=== PATIENT | female | born 1955 | race Caucasian/White ===

== ENCOUNTER 2025-04-10 17:09 | Inpatient (IN) | payer MEDICARE, OTHER, SELFPAY ==
[2025-04-10] VITALS (7 sets, daily range): BP systolic 155–195; BP diastolic 71–132; PULSE 60–81; RESP 14–20; TEMP 36.6; O2SAT 96–100; BMI 25.0
--- NOTE | ~2025-04-10 | XR_ITS ---
CLINICAL HISTORY: chest pain 1 view chest x-ray Comparison: None provided Findings: Heart size within normal limits. Tortuosity of thoracic aorta. No consolidation, significant pleural effusion or pneumothorax. Small density overlying the right 9th rib posteriorly is nonspecific. No acute fracture. IMPRESSION: 1. No acute findings. 2. Nonspecific small density overlying right 9th rib posteriorly. This document has been electronically signed by: Antonieta Yu MD on 04/10/2025 19:00:42
--- NOTE | ~2025-04-10 | CT_ITS ---
CLINICAL HISTORY: Epigastric Pain, ?R posterior rib CT chest with contrast Comparison: None provided Findings: The heart is normal size. No pericardial effusion. No aneurysm of thoracic aorta. Lungs are clear. No pleural effusion or pneumothorax. No adenopathy. Thyroid is small but otherwise within normal limits. Small hiatal hernia. Findings in upper abdomen described on separate CT abdomen and pelvis. Mild degenerative changes in the thoracic spine. No acute fracture. Spinal stimulator with the electrode tip in spinal canal at the level of T7-8. IMPRESSION: 1. No acute findings in the chest. This document has been electronically signed by: Antonieta Yu MD on 04/10/2025 21:11:52
--- NOTE | ~2025-04-10 | US_ITS ---
EXAMINATION: US ABDOMEN LIMITED HISTORY: RUQ, pancreatitis, r/o gallstones TECHNIQUE: Real-time grayscale ultrasound imaging of the liver and gallbladder was performed and images were reviewed. COMPARISON: Correlation is made with a CT of the abdomen with contrast dated 04/10/2025. FINDINGS: Liver: The right lobe of the liver measures 15.7 cm in size. The left lobe of the liver measures 9.6 cm in size. The liver demonstrates normal homogeneous echotexture. No focal mass or intrahepatic biliary ductal dilatation is identified. There is normal hepatopedal flow in the portal vein. Gallbladder and biliary tree: The gallbladder is unremarkable, without evidence of calculi, wall thickening, or pericholecystic fluid. There is no sonographic Acevedo sign. The common bile duct is normal in caliber measuring 4 mm. Pancreas: The pancreas is obscured by bowel gas. There is no free fluid in the right upper quadrant. US/US abdomen limited IMPRESSION: No evidence of cholelithiasis. Electronically signed by: Shubham Tipton MD 04/12/2025 07:02 AM [facility]
--- NOTE | ~2025-04-10 | CT_ITS ---
CLINICAL HISTORY: Eigastric Pain CT abdomen and pelvis with contrast Comparison: None provided Findings: No consolidation or effusion. The gallbladder is unremarkable. Mild intrahepatic biliary ductal prominence. Common bile duct is not prominent. Otherwise liver is unremarkable. The spleen is unremarkable. Significant peripancreatic inflammatory stranding in peripancreatic fluid extending in the retroperitoneum, suggestive of acute pancreatitis. Adrenal glands are normal. Enhancement of bilateral kidneys with no ureteral stones and no hydronephrosis or hydroureter. Very small bilateral renal hypodense lesions which are too small to be fully characterized but may represent cysts. No perinephric stranding or perinephric fluid. Small hiatal hernia. No bowel obstruction, pneumoperitoneum, or pneumatosis. Wall thickening and enhancement in the region of the pylorus and of the duodenm likely reactive. Duodenitis not excluded. Fluid-filled multiple small bowel loops especially in lower abdomen and pelvis suggestive of small-bowel ileus. No free fluid. No loculated fluid collection. Appendix not visualized. Uterus is absent. Urinary bladder only mildly filled and appears within normal limits. Atherosclerotic vascular disease with no aneurysm of the abdominal aorta. No acute fracture. Degenerative changes lumbar spine. Implanted spinal stimulator in left gluteal soft tissues with electrode extending into the thoracic spinal canal. IMPRESSION: 1. Findings consistent with acute pancreatitis. 2. Pyloric and duodenal wall thickening and enhancement likely reactive. Duodenitis not excluded. 3. Slight intrahepatic biliary ductal dilatation. Common bile duct is not dilated. 4. Mild small bowel ileus. 5. Additional nonacute findings as described. This document has been electronically signed by: Antonieta Yu MD on 04/10/2025 20:58:06
--- NOTE | 2025-04-10 17:16 | ECG_ITS ---
Test Reason : CP Blood Pressure : */* mmHG Vent. Rate : 58 BPM Atrial Rate : 58 BPM P-R Int : 212 ms QRS Dur : 80 ms QT Int : 440 ms P-R-T Axes : -23 48 60 degrees QTcB Int : 431 ms Sinus bradycardia with 1st degree A-V block Nonspecific T wave abnormality Abnormal ECG No previous ECGs available Referred By: Glenna Barlow Electronically Signed By: LEANN MARIE MD
--- NOTE | 2025-04-10 17:57 | ED_ITS ---
HPI - Chest Pain General Chief Complaint: Chest Pain Stated Complaint: CP started 1hr. ago feels better after nitro Time Seen by Provider: 04/10/25 17:57 History of Present Illness ED Provider: Jazmín Montiel NP HPI narrative: 69-year-old female medical history that is significant for hypertension, hyperlipidemia, mood disorder, chronic pain on oxycodone due to back pain, status post spinal cord stimulator and 3 laminectomies, 20 years ago at L3-L4, most recently 2 years ago, L3-L4 again, and over the summer L2-L3 presents to the ED with chief complaint of nonradiating substernal chest pain that began an hour prior to arrival. Patient activated EMS, who gave her 324 mg oral ASA and 1 sublingual nitro with not much relief of her symptoms. She reports that now the pain is below the left breast, in the epigastrium region, with extensive nausea and vomiting. Reports the pain becomes so severe it takes her breath away. She does describe it as a stabbing pain. There is no substernal pressure, no palpitations. No recent illness, fever, chills. Denies alcohol, drug use. No urinary complaints. Reports diarrhea yesterday, no constipation. Related Data Allergies Allergy/AdvReac Type Severity Reaction Status Date / Time nitrofurantoin (From Allergy Unknown Verified 04/10/25 17:30 Macrodantin) Review of Systems 2 Review of Systems: ROS is otherwise negative unless mentioned in HPI. [facility] Social History Social History Alcohol intake: current Alcohol intake frequency: holidays/special occasions only Alcohol type: beer Smoked in Last 30 Days: No Use of substances other than those prescribed or required for medical reasons: Yes Substance Use Type: Marijuana Substance Use Frequency: Daily Advance Directives: No Advance Directives Information Provided: Yes Do you have a plan to hurt others: No Plan Physical Exam 2 Exam: Exam: Nursing notes and vital signs reviewed. Constitutional: Well-appearing, NAD. Alert. Oriented X3. Eyes: EOMI. ENT: Pharynx normal. Neck: Normal inspection. Neck supple. CVS: Normal heart rate and rhythm. Pulses normal. Respiratory: No respiratory distress. Breath sounds normal. Abdomen: Soft, nondistended, subjective diffuse tenderness throughout. Skin: Skin warm and dry. Normal skin color. Extremities: No lower extremity edema. Neuro: Oriented X 3. No motor deficit. Vital Signs: Vital Signs: Last Vital Signs Temp 97.9 F 04/10/25 17:31 Pulse 78 04/10/25 20:41 Resp 20 04/10/25 22:53 BP 168/71 H 04/10/25 20:41 Pulse Ox 97 04/10/25 20:41 O2 Del Method Room Air 04/10/25 20:41 BMI result Body Mass Index 25.0 Medications Administered Discontinued Medications Generic Name Dose Route Start Last Admin Trade Name Yoandy PRN Reason Stop Dose Admin Hydromorphone HCl 1 mg 04/10/25 19:24 04/10/25 20:07 Hydromorphone Hcl 1 Mg/Ml Syringe IVPUSH 04/10/25 19:25 1 mg ONCE ONE Administration Protocol Hydromorphone HCl 1 mg 04/10/25 22:25 04/10/25 22:53 Hydromorphone Hcl 1 Mg/Ml Syringe IVPUSH 04/10/25 22:26 1 mg ONCE ONE Administration Protocol Sodium Chloride 1,000 mls @ 999 mls/hr 04/10/25 18:16 04/10/25 19:23 Ns IV 04/10/25 19:16 Infused .Q1H1M ONE Infusion Iohexol 85 ml 04/10/25 19:48 04/10/25 19:49 Iohexol 350 Mg/Ml 100 Ml Infus..Btl IV 04/10/25 19:49 85 ml ONCE ONE Administration Morphine Sulfate 4 mg 04/10/25 18:16 04/10/25 18:22 Morphine Sulfate 4 Mg/Ml Cartridge IVPUSH 04/10/25 18:17 4 mg ONCE ONE Administration Protocol Ondansetron HCl 4 mg 04/10/25 18:16 04/10/25 18:23 Ondansetron Hcl 4 Mg/2 Ml Vial IVPUSH 04/10/25 18:17 4 mg ONCE ONE Administration Potassium Chloride 40 meq 04/10/25 18:50 04/10/25 20:28 Potassium Chloride Er 20 Meq Tab.Er.Prt PO 04/10/25 18:51 40 meq ONCE ONE Administration Prochlorperazine Edisylate 10 mg 04/10/25 19:15 04/10/25 20:07 Prochlorperazine Edisylate 10 Mg/2 Ml Vial IVPUSH 04/10/25 19:16 10 mg ONCE ONE Administration Medical Decision Making Medical Decision Making [facility] Narrative: Upon my initial assessment of this patient, she is resting comfortably but is endorsing epigastric abdominal pain and left upper quadrant abdominal pain. She endorses active nausea, and experienced 1 episode of non bloody vomiting. She was given nitro by EMS with no relief. I have low clinical suspicion this is cardiac chest pain, her EKG is nonischemic, sinus rhythm with a rate of 67, borderline prolonged OH but no definitive AV block. We will plan to obtain cardiac enzymes, LFTs and lipase, as well as viral panel, and likely CT imaging when labs have returned. We will administer pain control, antiemetic and fluid bolus and reassess. She is a low risk heart score. 6:45 PM: Potassium level was mildly low at 3.1, we will replete orally. Her lipase level is 482, 3 times the normal limit, concerning for underlying pancreatitis. Flat troponin. We will repeat troponin, as well as obtain CT imaging of the abdomen, pelvis. 10:20 PM: CT imaging of the abdomen, pelvis reveals evidence of pancreatitis. Patient did not want to be admitted to the hospital, I p.o. trialed the patient however she endorsed severe pain afterwards. We will need admission for NPO, pain control, antiemetics. 11:05 PM: The hospitalist did request and I add on triglyceride level prior to admission. Triglyceride level here is flat. Second troponin is also flat. We will proceed with admission plan. Differential Diagnosis Differential Diagnoses: The differential diagnosis associated with the presentation includes ACS, mi, pancreatitis, cholecystitis Admission/Observation Consideration of admission/observation: Escalation of care including admission/observation considered Lab Data [facility] Lab Attestation statement: I reviewed the patient's lab results. 04/10/25 17:49 04/10/25 17:49 Labs: Lab Results 04/10/25 04/10/25 04/10/25 Range/Units 17:49 17:50 17:59 WBC 10.5 (4.8-10.8) X10*3/uL RBC 4.69 (4.20-5.50) X10*6/uL Hgb 13.2 (12.0-16.0) g/dl Hct 39.5 (37.0-47.0) % MCV 84.2 (80.0-98.0) fL MCH 28.1 (27.0-33.0) pg MCHC 33.4 (31.0-35.0) g/dl RDW 15.5 (11.0-16.0) % Plt Count 310 (160-400) X10*3/uL MPV 9.9 (9.4-12.3) fL Immature Gran % (Auto) 0.5 H (0.0-0.4) % Neut % (Auto) 64.1 (45-73) % Lymph % (Auto) 28.3 (20-40) % [place] % (Auto) 5.7 (2-11) % Eos % (Auto) 1.0 (0-4) % Baso % (Auto) 0.4 (0-2) % Lymph # (Auto) 3.0 (1.2-4.9) X10*3/uL [place] # (Auto) 0.6 (0.1-1.2) X10*3/uL Eos # (Auto) 0.1 (0.0-0.4) X10*3/uL Baso # (Auto) 0.0 (0.0-0.2) X10*3/uL Abs Immat Gran (auto) 0.05 H (0.00-0.03) X10*3/uL Absolute Neuts (auto) 6.7 (2.0-8.3) x10*3/uL Absolute Nucleated RBC 0.000 (0.0-0.012) X10*3/uL Nucleated RBC % (auto) 0.0 (0.0-0.2) /100WBC VBG pH 7.45 H (7.32-7.43) VBG pCO2 28 mmHg VBG pO2 39 mmHg VBG HCO3 19 L (22-26) mmol/L VBG O2 Saturation 64.0 % VBG Base Excess -2.6 mmol/L Sodium 139 (135-145) mmol/L Potassium 3.1 L (3.3-5.1) mmol/L Chloride 107 (96-108) mmol/L Carbon Dioxide 22 (22-29) mmol/L Anion Gap 13 (12-20) BUN 14 (9-16) mg/dL Creatinine 0.80 (0.5-1.4) mg/dL Estim Creat Clear Calc 60.3 Estimated GFR > 60 Random Glucose 116 H (60-115) mg/dL Calcium 8.7 (8.4-10.2) mg/dL Magnesium 2.2 (1.6-2.6) mg/dL Total Bilirubin 0.3 (0.0-1.0) mg/dL AST 27 (5-31) U/L ALT 14 (0-31) U/L Alkaline Phosphatase 69 (39-117) U/L Troponin I High Sens 7.5 (<3.5-17.0) ng/L NT-Pro-B Natriuret Pep 291.9 (<300) pg/mL Total Protein 5.8 L (6.5-8.0) g/dL Albumin 4.1 (3.5-5.0) g/dL Triglycerides 113 (<150) mg/dL Lipase 482 H (8-78) U/L Urine Color Urine Appearance Urine pH (5.0-9.0) Ur Specific [place] (1.005-1.025) Urine Protein (Neg-Trace) mg/dL Urine Glucose (UA) (Negative) mg/dL Urine Ketones (Negative) mg/dL Urine Blood (Negative) Urine Nitrite (Negative) Ur Leukocyte Esterase (Negative) Influenza Type A (PCR) NEGATIVE (Negative) Influenza Type B (PCR) NEGATIVE (Negative) RSV RNA Qual (PCR) NEGATIVE (Negative) SARS-CoV-2 RNA (RT-PCR) NEGATIVE (Negative) 04/10/25 Range/Units 19:02 WBC (4.8-10.8) X10*3/uL RBC (4.20-5.50) X10*6/uL Hgb (12.0-16.0) g/dl Hct (37.0-47.0) % MCV (80.0-98.0) fL MCH (27.0-33.0) pg MCHC (31.0-35.0) g/dl RDW (11.0-16.0) % Plt Count (160-400) X10*3/uL MPV (9.4-12.3) fL Immature Gran % (Auto) (0.0-0.4) % Neut % (Auto) (45-73) % Lymph % (Auto) (20-40) % [place] % (Auto) (2-11) % Eos % (Auto) (0-4) % Baso % (Auto) (0-2) % Lymph # (Auto) (1.2-4.9) X10*3/uL [place] # (Auto) (0.1-1.2) X10*3/uL Eos # (Auto) (0.0-0.4) X10*3/uL Baso # (Auto) (0.0-0.2) X10*3/uL Abs Immat Gran (auto) (0.00-0.03) X10*3/uL Absolute Neuts (auto) (2.0-8.3) x10*3/uL Absolute Nucleated RBC (0.0-0.012) X10*3/uL Nucleated RBC % (auto) (0.0-0.2) /100WBC VBG pH (7.32-7.43) VBG pCO2 mmHg VBG pO2 mmHg VBG HCO3 (22-26) mmol/L VBG O2 Saturation % VBG Base Excess mmol/L Sodium (135-145) mmol/L Potassium (3.3-5.1) mmol/L Chloride (96-108) mmol/L Carbon Dioxide (22-29) mmol/L Anion Gap (12-20) BUN (9-16) mg/dL Creatinine (0.5-1.4) mg/dL Estim Creat Clear Calc Estimated GFR Random Glucose (60-115) mg/dL Calcium (8.4-10.2) mg/dL Magnesium (1.6-2.6) mg/dL Total Bilirubin (0.0-1.0) mg/dL AST (5-31) U/L ALT (0-31) U/L Alkaline Phosphatase (39-117) U/L Troponin I High Sens 8.4 (<3.5-17.0) ng/L NT-Pro-B Natriuret Pep (<300) pg/mL Total Protein (6.5-8.0) g/dL Albumin (3.5-5.0) g/dL Triglycerides (<150) mg/dL Lipase (8-78) U/L Urine Color Yellow Urine Appearance Cloudy Urine pH 7.0 (5.0-9.0) Ur Specific [place] 1.010 (1.005-1.025) Urine Protein Negative (Neg-Trace) mg/dL Urine Glucose (UA) Negative (Negative) mg/dL Urine Ketones 15 (Negative) mg/dL Urine Blood Negative (Negative) Urine Nitrite Negative (Negative) Ur Leukocyte Esterase Negative (Negative) Influenza Type A (PCR) (Negative) Influenza Type B (PCR) (Negative) RSV RNA Qual (PCR) (Negative) SARS-CoV-2 RNA (RT-PCR) (Negative) Independent Interpretation I performed an independent interpretation of an: EKG Interpretation: Rate: 67 Rhythm: SR [place]: 52/31/53 Normal P waves. Normal LORI. Normal QRS complex. ST T wave : no dep, elev qTC: 471 prior studies: No previous available for comparison. The study has been interpreted contemporaneously by me. Radiology Impression Discussion of test interpretation with radiology: I have reviewed the radiologist's reading. Radiologist Impression: Chest X-Ray IMPRESSION: 1. No acute findings. 2. Nonspecific small density overlying right 9th rib posteriorly. CT Abdomen/Pelvis IMPRESSION: 1. Findings consistent with acute pancreatitis. 2. Pyloric and duodenal wall thickening and enhancement likely reactive. Duodenitis not excluded. 3. Slight intrahepatic biliary ductal dilatation. Common bile duct is not dilated. 4. Mild small bowel ileus. 5. Additional nonacute findings as described. CT Chest IMPRESSION: 1. No acute findings in the chest. Independent Historian Clinical information obtained from an independent historian. History obtained from or confirmed by: EMS External Record Review None available Chronic Conditions Patient?s care impacted by: Hypertension Social Determinants Patient?s care significantly limited by Social Determinants of Health including: Problems related to primary support group Discharge Plan Discharge Clinical Impression: Pancreatitis Qualifiers: Chronicity: acute Pancreatitis type: unspecified pancreatitis type Acute pancreatitis complication: no infection or necrosis Qualified Code(s): K85.90 - Acute pancreatitis without necrosis or infection, unspecified Patient Disposition: Admitted As Inpatient Print Language: Montenegrin
[2025-04-10 17:58] LABS: MANUAL DIFF FLAG NO
[2025-04-10 18:01] LABS: Venous Blood Gas Refer to POC result
[2025-04-10 18:02] LABS: VBG HCO3 19 mmol/L (22-26); VBG O2 % Saturation 64.0 %
--- NOTE | 2025-04-10 18:02 | ECG_ITS ---
Test Reason : CHEST PAIN Blood Pressure : */* mmHG Vent. Rate : 67 BPM Atrial Rate : 67 BPM P-R Int : 228 ms QRS Dur : 86 ms QT Int : 446 ms P-R-T Axes : 52 31 53 degrees QTcB Int : 471 ms Sinus rhythm with 1st degree A-V block Otherwise normal ECG When compared with ECG of 10-Apr-2025 17:42, No significant change was found Referred By: Jazmín Montiel Electronically Signed By: LEANN MARIE MD
[2025-04-10 18:20] LABS: Hematocrit 39.5 % (37.0-47.0); Hemoglobin 13.2 g/dl (12.0-16.0); Imm Gran Abs Auto 0.05 X10*3/uL (0.00-0.03); Imm Gran Pct Auto 0.5 % (0.0-0.4); Lymphocytes Absolute Auto 3.0 X10*3/uL (1.2-4.9); Mean Corpuscular HGB Conc 33.4 g/dl (31.0-35.0); Mean Corpuscular Hemoglobin 28.1 pg (27.0-33.0); Mean Corpuscular Volume 84.2 fL (80.0-98.0); NRBC Abs Auto 0.000 X10*3/uL (0.0-0.012); NRBC Pct Auto 0.0 /100WBC (0.0-0.2); Platelet Count 310 X10*3/uL (160-400); Red Blood Count 4.69 X10*6/uL (4.20-5.50); White Blood Count 10.5 X10*3/uL (4.8-10.8)
[2025-04-10 18:24] LABS: NT Pro B Type Natriuretic Pept 291.9 pg/mL (<300)
[2025-04-10 18:25] LABS: Troponin-I High Sensitivity 7.5 ng/L (<3.5-17.0)
[2025-04-10 18:28] LABS: Alanine Aminotransferase 14 U/L (0-31); Albumin Level 4.1 g/dL (3.5-5.0); Alkaline Phosphatase 69 U/L (39-117); Anion Gap 13 (12-20); Aspartate Amino Transferase 27 U/L (5-31); Blood Urea Nitrogen 14 mg/dL (9-16); Calcium 8.7 mg/dL (8.4-10.2); Carbon Dioxide 22 mmol/L (22-29); Chloride 107 mmol/L (96-108); Creatinine Clr Calc Pharmacy 60.3; Estimated Glomerular Filt Rate > 60; Magnesium 2.2 mg/dL (1.6-2.6); Potassium 3.1 mmol/L (3.3-5.1); Sodium 139 mmol/L (135-145); Total Protein 5.8 g/dL (6.5-8.0)
[2025-04-10 18:35] LABS: Lipase 482 U/L (8-78)
[2025-04-10 18:44] LABS: Resp Syncy Virus RNA Qual PCR NEGATIVE (Negative); SARS COV2 PCR INHOUSE NEGATIVE (Negative)
[2025-04-10 19:09] LABS: Appearance Urine Cloudy; Glucose Urine UA Negative (Negative); PH 7.0 (5.0-9.0); Specific Gravity - Urine 1.010 (1.005-1.025)
[2025-04-10 19:28] LABS: Troponin-I High Sensitivity 8.4 ng/L (<3.5-17.0)
[2025-04-10] MEDS: iohexoL 350 MG/ML 100 ML INFUS..BTL 85 ML IV (19:49)
[2025-04-10] MEDS: Potassium Chloride ER 20 MEQ TAB.ER.PRT 40 MEQ PO (20:28)
[2025-04-10 23:04] LABS: Triglycerides 113 mg/dL (<150)
--- NOTE | 2025-04-10 23:41 | P.HPHOSP_ITS ---
History of Present Illness Date of Service: 04/10/25 Attending physician on admission: Sridhar Reich Chief Complaint: Abdominal pain Thalia Andujar is a 69 years old woman with past medical history significant for GERD on Protonix, chronic pains due to osteoarthritis and back pain issues on oxycodone, tramadol and diclofenac presents to the emergency department complaining of epigastric pain that started today at 15:00. She described the pain as sharp and radiating to the left lower quadrant and back. It is associated with multiple episodes of nonbloody vomiting and 1 episode of watery nonbloody diarrhea. She took 1 Protonix without significant improvement of symptoms. She denied prior events of pancreatitis or PUD. She drinks 1-2 beers nightly. Denied current tobacco smoking or illicit drug use. She has had EGDs and colonoscopy in the past, and basically remarkable for GERD. Abdominal surgery history is remarkable for hysterectomy. In the ED she was found to have stable vital signs. Blood workup showed no leukocytosis. Hemoglobin is 13.2 and platelets 310. There are no significant electrolyte imbalances except for hypokalemia of 3.1. BUN is 14 and creatinine 0.80. LFTs are normal. Troponin is 7.5 then 8.4. Lipase 482. Urinalysis showed no evidence of UTI; there is ketonuria. Viral testing for COVID-19, influenza and RSV is negative. CXR showed no acute findings. Abdomen and pelvis CT scan with IV contrast showed finding consistent with acute pancreatitis, pyloric and duodenal wall thickening and enhancement likely reactive; duodenitis not excluded. There is slight intrahepatic bilateral ductal dilatation there is no CBD dilatation. Mild small bowel ileus. Chest CTA showed no acute finding in the chest. ECG shows sinus bradycardia with first-degree AV block. ED tx: NS 1 L bolus, morphine 4 mg IV, Zofran 4 mg IV, potassium chloride 40 mEq p.o., Compazine 10 mg IV, Dilaudid 2 mg IV total Review of Systems 2 Review of Systems: All 12 systems were reviewed and normal except as noted in HPI. [facility] Medical History (Updated 04/10/25 @ 23:58 by Sridhar Reich MD) Hyperlipidemia Chronic prescription opiate use Social History Alcohol intake: current Alcohol intake frequency: holidays/special occasions only Alcohol type: beer Smoked in Last 30 Days: No Use of substances other than those prescribed or required for medical reasons: Yes Substance Use Type: Marijuana Substance Use Frequency: Daily Advance Directives: No Advance Directives Information Provided: Yes Do you have a plan to hurt others: No Plan Meds Allergies Allergy/AdvReac Type Severity Reaction Status Date / Time nitrofurantoin (From Allergy Unknown Verified 04/10/25 17:30 Macrodantin) Active Medications: Current Medications Acetaminophen (Acetaminophen 325 Mg Tablet) 650 mg PO Q6H PRN PRN Reason: Pain, Mild 1-3,fever,headache Enoxaparin Sodium (Enoxaparin Sodium 40 Mg/0.4 Ml Syringe) 40 mg SUBCUT Q24H [place] Ondansetron HCl (Ondansetron Hcl 4 Mg/2 Ml Vial) 4 mg IVPUSH Q6H PRN PRN Reason: Nausea and Vomiting Pantoprazole Sodium (Pantoprazole Sodium 40 Mg/10 Ml Vial) 40 mg IVPUSH BID@0630,1630 [place] Sodium Chloride (0.9 % Sodium Chloride Flush 3 Ml Syringe) 3 ml IVFLUSH QSHIFT [facility] Physical Exam 2 Vital Signs and Narrative: Vital Signs: Last Vital Signs Temp 97.9 F 04/10/25 17:31 Pulse 78 04/10/25 20:41 Resp 20 04/10/25 22:53 BP 168/71 H 04/10/25 20:41 Pulse Ox 97 04/10/25 20:41 O2 Del Method Room Air 04/10/25 20:41 BMI result Body Mass Index 25.0 General: Alert, oriented, in no acute distress. Well nourished and cooperative. Afebrile. HEENT: Head normocephalic, atraumatic. PER, EOMI. Sclerae anicteric, conjunctiva clear. Oropharynx without erythema or exudate. Mucous membranes dry. Neck: Supple, or JVD. Heart: RRR, no murmurs, rubs or gallops. Lungs: Clear to auscultation bilaterally. No wheezes, rales, or rhonchi. Normal respiratory effort. Abdomen: Soft, nondistended, epigastric tenderness + left lower quadrant tenderness without rebound or guarding, increased bowel sounds. No hepatosplenomegaly, masses or masses. Extremities: No calf tenderness bilaterally, no swelling Musculoskeletal: Full range of motion. No joint swelling, deformity, or tenderness. Normal muscle tone and strength. Skin: Warm/Dry. No pallor. No jaundice. Neurologic: Alert & oriented x4. Moving all extremities spontaneously. Normal speech. Psychological: Normal mood and affect. Thought process coherent. Results Labs 04/10/25 17:49 04/10/25 17:49 Labs: Laboratory Results - last 24 hr 04/10/25 04/10/25 04/10/25 17:49 17:50 17:59 MCV 84.2 MCH 28.1 MCHC 33.4 RDW 15.5 Plt Count 310 MPV 9.9 Immature Gran % (Auto) 0.5 H Neut % (Auto) 64.1 Lymph % (Auto) 28.3 [place] % (Auto) 5.7 Eos % (Auto) 1.0 Baso % (Auto) 0.4 Lymph # (Auto) 3.0 [place] # (Auto) 0.6 Eos # (Auto) 0.1 Baso # (Auto) 0.0 Abs Immat Gran (auto) 0.05 H Absolute Neuts (auto) 6.7 Absolute Nucleated RBC 0.000 Nucleated RBC % (auto) 0.0 VBG pH 7.45 H VBG pCO2 28 VBG pO2 39 VBG HCO3 19 L VBG O2 Saturation 64.0 VBG Base Excess -2.6 Anion Gap 13 Estim Creat Clear Calc 60.3 Estimated GFR > 60 Random Glucose 116 H Calcium 8.7 Magnesium 2.2 Total Bilirubin 0.3 AST 27 ALT 14 Alkaline Phosphatase 69 Troponin I High Sens 7.5 NT-Pro-B Natriuret Pep 291.9 Total Protein 5.8 L Albumin 4.1 Triglycerides 113 Lipase 482 H Urine Color Urine Appearance Urine pH Ur Specific [place] Urine Protein Urine Glucose (UA) Urine Ketones Urine Blood Urine Nitrite Ur Leukocyte Esterase Influenza Type A (PCR) NEGATIVE Influenza Type B (PCR) NEGATIVE RSV RNA Qual (PCR) NEGATIVE SARS-CoV-2 RNA (RT-PCR) NEGATIVE 04/10/25 19:02 MCV MCH MCHC RDW Plt Count MPV Immature Gran % (Auto) Neut % (Auto) Lymph % (Auto) [place] % (Auto) Eos % (Auto) Baso % (Auto) Lymph # (Auto) [place] # (Auto) Eos # (Auto) Baso # (Auto) Abs Immat Gran (auto) Absolute Neuts (auto) Absolute Nucleated RBC Nucleated RBC % (auto) VBG pH VBG pCO2 VBG pO2 VBG HCO3 VBG O2 Saturation VBG Base Excess Anion Gap Estim Creat Clear Calc Estimated GFR Random Glucose Calcium Magnesium Total Bilirubin AST ALT Alkaline Phosphatase Troponin I High Sens 8.4 NT-Pro-B Natriuret Pep Total Protein Albumin Triglycerides Lipase Urine Color Yellow Urine Appearance Cloudy Urine pH 7.0 Ur Specific [place] 1.010 Urine Protein Negative Urine Glucose (UA) Negative Urine Ketones 15 Urine Blood Negative Urine Nitrite Negative Ur Leukocyte Esterase Negative Influenza Type A (PCR) Influenza Type B (PCR) RSV RNA Qual (PCR) SARS-CoV-2 RNA (RT-PCR) Assessment and Plan (1) Pancreatitis: Qualifiers: Acute pancreatitis complication: no infection or necrosis Chronicity: a cute Pancreatitis type: unspecified pancreatitis type Qualified Code(s): K 85.90 - Acute pancreatitis without necrosis or infection, unspecified Status: Acute (2) Hypokalemia: Status: Acute Plan Thalia Andujar is a 69 y/o woman with a PMHx significant for GERD on Protonix and chronic pain (on oral opiate and diclofenac) who presents with: Acute pancreatitis + ? associated duodenitis and gastritis, cause unclear. Hold diclofenac. NPO. IV fluids. Pain control. Protonix 40 mg IV b.i.d.. Continue to monitor lipase and CRP level. Patient was encouraged to avoid alcoholic beverage every night. Check abdominal ultrasound to assess for gallstones. Gastroenterology consult. Hypokalemia, likely secondary to vomiting and poor p.o. intake. Replete as needed. Continue to monitor. Chronic pains/osteoarthritis. s/p spinal stimulator. On chronic opiate use including oxycodone and tramadol. Possible alcohol abuse. Drinks 1-2 beers nightly. CIWA for now. Hyperlipidemia. Continue statin when able. Mood disorder. Continue home meds: Sertraline and Xanax. Code status: Full DVT prophylaxis: Lovenox Patient will need hospitalization for at least 2 midnights for acute pancreatitis and possible duodenitis treatment with IV pain meds, hydration and evaluation by subspecialty. Quality Stroke Does the patient have a stroke diagnosis?: No VTE Prior VTE?: No VTE Risk Level:: Medical - moderate - high VTE Device Contraindication: Treatment Not Indicated VTE Drug Contraindication: N/A - Med Ordered
[2025-04-11] VITALS (8 sets, daily range): BP systolic 105–186; BP diastolic 68–98; PULSE 69–82; RESP 16–19; TEMP 36.4–37.1; O2SAT 95–98
[2025-04-11] MEDS: 0.9 % Sodium Chloride Flush 3 ML SYRINGE IVFLUSH ×3 (00:41→19:22)
[2025-04-11] MEDS: KCl 40 mEq in 0.9 % Sodium Chl 40 MEQ/1,000 ML IV.SOLN 150 MEQ IVCONT (00:55)
[2025-04-11 04:07] LABS: MANUAL DIFF FLAG NO
[2025-04-11 04:08] LABS: Hematocrit 36.2 % (37.0-47.0); Hemoglobin 12.0 g/dl (12.0-16.0); Imm Gran Abs Auto 0.05 X10*3/uL (0.00-0.03); Imm Gran Pct Auto 0.4 % (0.0-0.4); Lymphocytes Absolute Auto 1.9 X10*3/uL (1.2-4.9); Mean Corpuscular HGB Conc 33.1 g/dl (31.0-35.0); Mean Corpuscular Hemoglobin 28.1 pg (27.0-33.0); Mean Corpuscular Volume 84.8 fL (80.0-98.0); NRBC Abs Auto 0.000 X10*3/uL (0.0-0.012); NRBC Pct Auto 0.0 /100WBC (0.0-0.2); Platelet Count 257 X10*3/uL (160-400); Red Blood Count 4.27 X10*6/uL (4.20-5.50); White Blood Count 12.8 X10*3/uL (4.8-10.8)
[2025-04-11 05:06] LABS: Alanine Aminotransferase 13 U/L (0-31); Albumin Level 3.9 g/dL (3.5-5.0); Alkaline Phosphatase 63 U/L (39-117); Anion Gap 11 (12-20); Aspartate Amino Transferase 21 U/L (5-31); Blood Urea Nitrogen 8 mg/dL (9-16); Calcium 7.8 mg/dL (8.4-10.2); Carbon Dioxide 21 mmol/L (22-29); Chloride 111 mmol/L (96-108); Creatinine Clr Calc Pharmacy 75.4; Estimated Glomerular Filt Rate > 60; Magnesium 2.0 mg/dL (1.6-2.6); Potassium 3.6 mmol/L (3.3-5.1); Sodium 139 mmol/L (135-145); Total Protein 5.6 g/dL (6.5-8.0)
[2025-04-11 05:17] LABS: Lipase 1188 U/L (8-78)
--- NOTE | 2025-04-11 07:43 | P.PNIM_ITS ---
Subjective Subjective Date of Service: 04/11/25 Interval History: acute pancreatitis htn Review of Systems has abd pain similar to yesterday. Feels somewhat nauseated Passing gases, last BM yesterday. Review of Systems: Yes all other systems are reviewed and are negative Physical Exam 2 Exam: Exam: Appearance: Alert.? Oriented X3.? cvs: [id number], [id number] . res: clear to auscultation ,no rhonchii or wheezing abd: no rebound or guarding ,left upper flank area pain, bs present. ext pulses present , no cyanosis . neuro: axo3 , nonfocal. Vital Signs: Vital Signs: Last Vital Signs Temp 97.9 F 04/10/25 17:31 Pulse 76 04/11/25 04:38 Resp 17 04/11/25 04:38 BP 186/98 H 04/11/25 04:38 Pulse Ox 98 04/11/25 04:38 O2 Del Method Room Air 04/11/25 04:38 BMI result Body Mass Index 25.0 Objective Data Active Medications Acetaminophen (Acetaminophen 325 Mg Tablet) 650 mg PO Q6H PRN PRN Reason: Pain, Mild 1-3,fever,headache Docusate Sodium (Docusate Sodium 100 Mg Capsule) 100 mg PO BID PRN PRN Reason: Constipation Enoxaparin Sodium (Enoxaparin Sodium 40 Mg/0.4 Ml Syringe) 40 mg SUBCUT Q24H [place] Hydromorphone HCl (Hydromorphone Hcl 1 Mg/Ml Syringe) 1 mg IVPUSH Q3H PRN; Protocol PRN Reason: Pain, Severe (Pain Scale 7-10) Last Admin: 04/11/25 05:36 Dose: 1 mg Documented By: CELSA Ondansetron HCl (Ondansetron Hcl 4 Mg/2 Ml Vial) 4 mg IVPUSH Q6H PRN PRN Reason: Nausea and Vomiting Last Admin: 04/11/25 04:40 Dose: 4 mg Documented By: CELSA Oxycodone HCl (Oxycodone Hcl Immed Release 5 Mg Tablet) 5 mg PO Q4H PRN PRN Reason: Pain, Moderate(Pain Scale 4-6) Pantoprazole Sodium (Pantoprazole Sodium 40 Mg/10 Ml Vial) 40 mg IVPUSH BID@0630,1630 [facility] Last Admin: 04/11/25 00:41 Dose: 40 mg Documented By: CELSA Sodium Chloride (0.9 % Sodium Chloride Flush 3 Ml Syringe) [facility] Last Admin: 04/11/25 00:41 Dose: 3 ml Documented By: CELSA Labs 04/11/25 03:50 04/11/25 03:50 Labs: Laboratory Results - last 24 hr 04/10/25 04/10/25 04/10/25 17:49 17:50 17:59 MCV 84.2 MCH 28.1 MCHC 33.4 RDW 15.5 Plt Count 310 MPV 9.9 Immature Gran % (Auto) 0.5 H Neut % (Auto) 64.1 Lymph % (Auto) 28.3 [place] % (Auto) 5.7 Eos % (Auto) 1.0 Baso % (Auto) 0.4 Lymph # (Auto) 3.0 [place] # (Auto) 0.6 Eos # (Auto) 0.1 Baso # (Auto) 0.0 Abs Immat Gran (auto) 0.05 H Absolute Neuts (auto) 6.7 Absolute Nucleated RBC 0.000 Nucleated RBC % (auto) 0.0 VBG pH 7.45 H VBG pCO2 28 VBG pO2 39 VBG HCO3 19 L VBG O2 Saturation 64.0 VBG Base Excess -2.6 Anion Gap 13 Estim Creat Clear Calc 60.3 Estimated GFR > 60 Random Glucose 116 H Calcium 8.7 Magnesium 2.2 Total Bilirubin 0.3 AST 27 ALT 14 Alkaline Phosphatase 69 Troponin I High Sens 7.5 C-Reactive Protein NT-Pro-B Natriuret Pep 291.9 Total Protein 5.8 L Albumin 4.1 Triglycerides 113 Lipase 482 H Urine Color Urine Appearance Urine pH Ur Specific [place] Urine Protein Urine Glucose (UA) Urine Ketones Urine Blood Urine Nitrite Ur Leukocyte Esterase Influenza Type A (PCR) NEGATIVE Influenza Type B (PCR) NEGATIVE RSV RNA Qual (PCR) NEGATIVE SARS-CoV-2 RNA (RT-PCR) NEGATIVE 04/10/25 04/11/25 19:02 03:50 MCV 84.8 MCH 28.1 MCHC 33.1 RDW 15.3 Plt Count 257 MPV 9.4 Immature Gran % (Auto) 0.4 Neut % (Auto) 77.6 H Lymph % (Auto) 15.2 L [place] % (Auto) 6.3 Eos % (Auto) 0.2 Baso % (Auto) 0.3 Lymph # (Auto) 1.9 [place] # (Auto) 0.8 Eos # (Auto) 0.0 Baso # (Auto) 0.0 Abs Immat Gran (auto) 0.05 H Absolute Neuts (auto) 9.9 H Absolute Nucleated RBC 0.000 Nucleated RBC % (auto) 0.0 VBG pH VBG pCO2 VBG pO2 VBG HCO3 VBG O2 Saturation VBG Base Excess Anion Gap 11 L Estim Creat Clear Calc 75.4 Estimated GFR > 60 Random Glucose 122 H Calcium 7.8 L D Magnesium 2.0 Total Bilirubin 0.3 AST 21 ALT 13 Alkaline Phosphatase 63 Troponin I High Sens 8.4 C-Reactive Protein 0.49 NT-Pro-B Natriuret Pep Total Protein 5.6 L Albumin 3.9 Triglycerides Lipase 1188 H Urine Color Yellow Urine Appearance Cloudy Urine pH 7.0 Ur Specific [place] 1.010 Urine Protein Negative Urine Glucose (UA) Negative Urine Ketones 15 Urine Blood Negative Urine Nitrite Negative Ur Leukocyte Esterase Negative Influenza Type A (PCR) Influenza Type B (PCR) RSV RNA Qual (PCR) SARS-CoV-2 RNA (RT-PCR) Assessment and Plan (1) Pancreatitis: Status: Acute (2) Hypokalemia: Status: Acute Assessment and Plan: 69 y/o woman with a PMHx significant for GERD on Protonix and chronic pain (on oral opiate and diclofenac) who presents with: Acute pancreatitis + ? associated duodenitis and gastritis, cause unclear. ct abd: consistent with acute pancreatitis. Pyloric and duodenal wall thickening and enhancement likely reactive. Duodenitis not excluded. Slight intrahepatic biliary ductal dilatation. Common bile duct is not dilated. Mild small bowel ileus. elevated lipase levels mild leucocytosis reactive to above. abdominal ultrasound to assess for gallstones. Hold diclofenac. NPO. IV fluids. Pain control. Protonix 40 mg IV b.i.d.. Gastroenterology consult. Hypokalemia, likely secondary to vomiting and poor p.o. intake. Replete as needed. Continue to monitor. Chronic pains/osteoarthritis. s/p spinal stimulator. On chronic opiate use including oxycodone and tramadol. Possible alcohol abuse. Drinks 1-2 beers nightly. CIWA for now. Hyperlipidemia. Continue statin when able. Mood disorder. Continue home meds: Sertraline and Xanax. Code status: Full DVT prophylaxis: Lovenox ongoing need for stay: acute pancreatitis and possible duodenitis treatment with IV pain meds, hydration and evaluation by subspecialty. Quality Stroke Does the patient have a stroke diagnosis?: No VTE Prior VTE?: No VTE Risk Level:: Medical - moderate - high VTE Device Contraindication: Treatment Not Indicated VTE Drug Contraindication: N/A - Med Ordered
--- NOTE | 2025-04-11 08:57 | PHA.MEDREC ---
Addendum entered by Lucila Quezada, PharmD 04/11/25 11:07: [facility] reviewed. Patient confirmed she is taking topiramate 100 mg daily. Original Note: Pharmacy Consult ? Medication Reconciliation Pharmacy has completed the medication reconciliation. Spoke with pt and she confirmed her medications. Pt confirmed she is taking Alprazolam 0.25mg tabs 1 @ bedtime now; originally written 0.25mg BID, Estradiol patches twice a week on [facility]; pt last took that Saturday 04/07, Montelukast 10mg 1 QD; LF in [place] 11/12 for 90, LF at [facility] pharmacy in [place] ([phone]) 11/12, Gabapebtin 600mg caps 1 TID; LF at [facility] in [place] ([phone]) 12/05 for 90 and Bupropion 300mg tabs 1QD; LF @ [facility] pharmacy 11/24 for 90 days.
--- NOTE | 2025-04-11 16:37 | MHC.CM.PN ---
CM ATTEMPTED TO MEET WITH PT WHO WAS IN THE REST ROOM CM WILL REVISIT
[2025-04-11] MEDS: buPROPion HCl XL 300 MG TAB.ER.24H PO (18:39)
--- NOTE | 2025-04-11 18:58 | P.EN_ITS ---
Event Note Date of Service: 04/11/25 Event Note: GI Consult-Full note dictated-History form the patient and the EMR. Imp: Acute pancreatitis, ? etiology. She is clinically stable but still having the same pain as yesterday and her lipase is higher than the admission level. Rec: Supportive care, NPO for now, follow up labs, and continue IV fluids. Check GB U/S report re: any possibility of gallstones that might contribute to the pancreatitis. Depending upon her clinical course she may need further w/u IgG holland btypes to R/O an autoimmune pancreatitis, an EUS of the pancreas, and a MRCP/MRI of the pancreas. D/W patient in detail. Thanks Time Spent With Patient Time: Total time managing care of this patient today ____ minutes.
[2025-04-11] MEDS: Lactated Ringers 1,000 ML 100 ML IVCONT (19:32)
[2025-04-12] VITALS (7 sets, daily range): BP systolic 109–160; BP diastolic 64–85; PULSE 74–88; RESP 16–19; TEMP 36.1–36.9; O2SAT 96–99
--- NOTE | 2025-04-12 02:43 | CONS_ITS ---
DATE OF SERVICE: 04/11/2025 REASON FOR CONSULTATION: Pancreatitis and abdominal pain. HISTORY OF PRESENT ILLNESS: The patient is a 69-year-old female who was in her usual state of health up until yesterday afternoon when she developed the fairly sudden onset of upper abdominal pain that became quite severe and associated with nausea and vomiting. She had never had these symptoms before. She denies any known history of pancreatitis in herself or family members. She denies any history of pancreatic cancer in the family. Prior to yesterday, she reports that she was basically feeling well from a GI standpoint. She tends to enjoy a good appetite. Denies any significant heartburn or dysphagia. She reports that her bowel movements have been regular and without any signs of bleeding. Of note, she does take a daily PPI to maintain good control of the reflux. She has undergone previous upper endoscopies and colonoscopies while living in [place] that reportedly were nonrevealing. She advises me that she just moved back here from [place] after having taking care of her mother there prior to her mother dying. The patient reports that she is still having abdominal pain significantly and just about the same as when she came in yesterday. She denies any recent signs of jaundice, dysphagia, unintentional weight loss, or fevers. She does have 1 beer each evening about 5 times a week. She denies any history of significant alcohol use aside from that, and does not smoke. MEDICATIONS: Her medications at home include alprazolam, bupropion, diclofenac, estradiol, gabapentin, lisinopril, montelukast, oxycodone with acetaminophen, pantoprazole, rosuvastatin, sertraline, tizanidine, topiramate, tramadol, . PAST MEDICAL HISTORY: Hypertension, hyperlipidemia, gastroesophageal reflux, back pain. PAST SURGICAL HISTORY: Her surgeries include multiple back operations, insertion of spinal stimulator, hysterectomy but her ovaries remain. She denies history of [place] diabetes or stroke. She describes previous upper endoscopies and colonoscopy while living in [place]. SOCIAL HISTORY: She does not smoke and has about 1 beer per day. She denies any excess drinking. FAMILY HISTORY: Noncontributory. PHYSICAL EXAMINATION: GENERAL: The patient is a pleasant, alert, comfortable-appearing female. VITAL SIGNS: Have been stable. She has been afebrile. SKIN: Warm and dry. Anicteric sclerae. Moist mucous membranes. ABDOMEN: Soft but slightly distended. Bowel sounds are hypoactive. She does have diffuse tenderness, particularly in the upper abdomen. There is no palpable mass. EXTREMITIES: Without edema. LABORATORY DATA: White count 10.5 yesterday and 12.8 today. Hemoglobin 12.0 today at 13.2 yesterday. MCV 85. Normal electrolytes. BUN 8, creatinine 0.6, blood sugar 122, calcium 7.8, lipase 1188. Her lipase was [address] scan of her abdomen and pelvis on admission revealed mild intrahepatic biliary ductal prominence, but normal common bile duct. The gallbladder was unremarkable. Liver and spleen were unremarkable. There was significant peripancreatic inflammatory stranding in the peripancreatic area with associated fluid extending into the retroperitoneum. There was no mass. This was felt to be consistent with acute pancreatitis. There was some pyloric and duodenal wall thickening in relation to the pancreatitis. IMPRESSION: The patient is a 69-year-old female presenting with a new onset of acute pancreatitis of unclear etiology at this time. She does have about 1 beer per day, but that does not sound like would be enough to cause pancreatitis. She does have an ultrasound of the gallbladder pending to be sure she does not have gallstones that may not be able to be seen on CT scan. Her normal LFTs on admission would tend to go against a biliary source of pancreatitis. Of note, she also had a normal triglyceride level in regard to any other etiologies of pancreatitis. At this point, she appears very stable. However, she is still having some pain and her lipase is actually higher than yesterday. I would therefore recommend holding off on starting liquids and keeping her on IV fluids. As far as further workup is concerned, I would recommend checking the ultrasound in regard to any possibility of gallstones. She may need checking of IgG subtypes to rule out autoimmune pancreatitis. She may need further workup with MRI and MRCP, as well as endoscopic ultrasound of the pancreas. Her medication list will need to be carefully reviewed. Although none of the medicines are new, she may be on some medications that might predispose to increased risk of pancreatitis. Once her abdominal pain hopefully improves and the lipase levels began to fall, I would then recommend starting her on clear liquids and then advancing as tolerated. If she does need further testing with endoscopic ultrasound. We can arrange that for down at [facility]. This has been discussed with the patient and she is comfortable with the plan. Thank you for the consultation. MD CLAUDIA Turner/HITESH / [phone]
[2025-04-12] MEDS: Lactated Ringers 1,000 ML 100 ML IVCONT ×2 (05:25→17:42)
[2025-04-12 05:59] LABS: MANUAL DIFF FLAG NO
[2025-04-12 06:01] LABS: Hematocrit 35.0 % (37.0-47.0); Hemoglobin 11.3 g/dl (12.0-16.0); Imm Gran Abs Auto 0.12 X10*3/uL (0.00-0.03); Imm Gran Pct Auto 0.7 % (0.0-0.4); Lymphocytes Absolute Auto 2.1 X10*3/uL (1.2-4.9); Mean Corpuscular HGB Conc 32.3 g/dl (31.0-35.0); Mean Corpuscular Hemoglobin 27.6 pg (27.0-33.0); Mean Corpuscular Volume 85.6 fL (80.0-98.0); NRBC Abs Auto 0.000 X10*3/uL (0.0-0.012); NRBC Pct Auto 0.0 /100WBC (0.0-0.2); Platelet Count 243 X10*3/uL (160-400); Red Blood Count 4.09 X10*6/uL (4.20-5.50); White Blood Count 16.4 X10*3/uL (4.8-10.8)
[2025-04-12 06:19] LABS: Alanine Aminotransferase 8 U/L (0-31); Albumin Level 3.4 g/dL (3.5-5.0); Alkaline Phosphatase 61 U/L (39-117); Anion Gap 9 (12-20); Aspartate Amino Transferase 19 U/L (5-31); Blood Urea Nitrogen 7 mg/dL (9-16); Calcium 8.2 mg/dL (8.4-10.2); Carbon Dioxide 24 mmol/L (22-29); Chloride 110 mmol/L (96-108); Creatinine Clr Calc Pharmacy 77.8; Estimated Glomerular Filt Rate > 60; Lipase 81 U/L (8-78); Potassium 3.2 mmol/L (3.3-5.1); Sodium 140 mmol/L (135-145); Total Protein 5.3 g/dL (6.5-8.0)
[2025-04-12] MEDS: buPROPion HCl XL 300 MG TAB.ER.24H PO (07:49)
[2025-04-12] MEDS: Potassium Chloride ER 20 MEQ TAB.ER.PRT PO (11:15)
--- NOTE | 2025-04-12 11:15 | MHC.CM.PN ---
PT LIVES ALONE IS INDEPEDENT HAS NO SERVIXES HAS OWN RIDE HOME DC PLAN HOME N/S
--- NOTE | 2025-04-12 13:43 | P.PNIM_ITS ---
Subjective Subjective Date of Service: 04/12/25 Interval History: acute pancreatitis htn Review of Systems abd pain somewhat improving still feels nauseated Review of Systems: Yes all other systems are reviewed and are negative Physical Exam 2 Exam: Exam: Appearance: Alert.? Oriented X3.? cvs: [id number], [id number] . res: clear to auscultation ,no rhonchii or wheezing abd: no rebound or guarding ,left upper flank area pain, bs present. ext pulses present , no cyanosis . neuro: axo3 , nonfocal. Vital Signs: Vital Signs: Last Vital Signs Temp 97.0 F 04/12/25 11:29 Pulse 74 04/12/25 11:29 Resp 16 04/12/25 11:29 BP 153/81 H 04/12/25 11:29 Pulse Ox 96 04/12/25 11:29 O2 Del Method Room Air 04/12/25 11:29 BMI result Body Mass Index 25.0 Objective Data Active Medications Acetaminophen (Acetaminophen 325 Mg Tablet) 650 mg PO Q6H PRN PRN Reason: Pain, Mild 1-3,fever,headache Alprazolam (Alprazolam 0.25 Mg Tablet) 0.25 mg PO BEDTIME [facility] Last Admin: 04/11/25 21:15 Dose: 0.25 mg Documented By: ASHLEY Amlodipine Besylate (Amlodipine Besylate 5 Mg Tablet) 5 mg PO DAILY [facility]; Protocol Last Admin: 04/12/25 07:49 Dose: 5 mg Documented By: PORSHA Bupropion HCl (Bupropion Hcl Xl 300 Mg Tab.Er.24h) 300 mg PO DAILY [facility] Last Admin: 04/12/25 07:49 Dose: 300 mg Documented By: PORSHA Docusate Sodium (Docusate Sodium 100 Mg Capsule) 100 mg PO BID PRN PRN Reason: Constipation Enoxaparin Sodium (Enoxaparin Sodium 40 Mg/0.4 Ml Syringe) 40 mg SUBCUT Q24H [facility] Last Admin: 04/12/25 07:48 Dose: 40 mg Documented By: PORSHA Gabapentin (Gabapentin 600 Mg Tablet) 600 mg PO TID [facility] Last Admin: 04/12/25 07:49 Dose: 600 mg Documented By: PORSHA Hydromorphone HCl (Hydromorphone Hcl 1 Mg/Ml Syringe) 1 mg IVPUSH Q3H PRN; Protocol PRN Reason: Pain, Severe (Pain Scale 7-10) Last Admin: 04/12/25 11:14 Dose: 1 mg Documented By: PORSHA Lactated Ringer's (Lr) 1,000 mls @ 100 mls/hr IVCONT .Q10H [facility] Last Admin: 04/12/25 05:25 Dose: 100 mls/hr Documented By: ASHLEY Montelukast Sodium (Montelukast Sodium 10 Mg Tablet) 10 mg PO DAILY [facility] Last Admin: 04/12/25 07:48 Dose: 10 mg Documented By: PORSHA Non-Formulary Medication (Estradiol) 1 patch [facility] Ondansetron HCl (Ondansetron Hcl 4 Mg/2 Ml Vial) 4 mg IVPUSH Q6H PRN PRN Reason: Nausea and Vomiting Last Admin: 04/11/25 04:40 Dose: 4 mg Documented By: CELSA Oxycodone HCl (Oxycodone Hcl Immed Release 5 Mg Tablet) 5 mg PO Q4H PRN PRN Reason: Pain, Moderate(Pain Scale 4-6) Pantoprazole Sodium (Pantoprazole Sodium 40 Mg/10 Ml Vial) 40 mg IVPUSH BID@0630,1630 [facility] Last Admin: 04/12/25 05:34 Dose: 40 mg Documented By: ASHLEY Sertraline HCl (Sertraline Hcl 100 Mg Tablet) 200 mg PO BEDTIME [facility] Last Admin: 04/11/25 21:15 Dose: 200 mg Documented By: ASHLEY Sodium Chloride (0.9 % Sodium Chloride Flush 3 Ml Syringe) [facility] Last Admin: 04/12/25 07:36 Dose: Not Given Documented By: PORSHA Non-Admin Reason: IV Running Temazepam (Temazepam 15 Mg Capsule) 15 mg PO BEDTIME PRN PRN Reason: Insomnia Temazepam (Temazepam 15 Mg Capsule) 15 mg PO BEDTIME [facility] Last Admin: 04/11/25 21:16 Dose: 15 mg Documented By: ASHLEY Tizanidine HCl (Tizanidine Hcl 4 Mg Tablet) 4 mg PO BEDTIME [facility] Last Admin: 04/11/25 21:16 Dose: 4 mg Documented By: ASHLEY Tizanidine HCl (Tizanidine Hcl 4 Mg Tablet) 4 mg PO BEDTIME PRN PRN Reason: MUSCLE SPASMS Topiramate (Topiramate 100 Mg Tablet) 100 mg PO DAILY [facility] Last Admin: 04/12/25 07:48 Dose: 100 mg Documented By: PORSHA Tramadol HCl (Tramadol Hcl 50 Mg Tablet) 50 mg PO BID [facility] Last Admin: 04/12/25 07:48 Dose: 50 mg Documented By: PORSHA Labs 04/12/25 05:08 04/12/25 05:08 Labs: Laboratory Results - last 24 hr 04/12/25 05:08 MCV 85.6 MCH 27.6 MCHC 32.3 RDW 15.8 Plt Count 243 MPV 10.1 Immature Gran % (Auto) 0.7 H Neut % (Auto) 79.7 H Lymph % (Auto) 12.8 L [place] % (Auto) 6.1 Eos % (Auto) 0.4 Baso % (Auto) 0.3 Lymph # (Auto) 2.1 [place] # (Auto) 1.0 Eos # (Auto) 0.1 Baso # (Auto) 0.1 Abs Immat Gran (auto) 0.12 H Absolute Neuts (auto) 13.0 H Absolute Nucleated RBC 0.000 Nucleated RBC % (auto) 0.0 Anion Gap 9 L Estim Creat Clear Calc 77.8 Estimated GFR > 60 Fasting Glucose 77 Calcium 8.2 L Total Bilirubin 0.3 Direct Bilirubin 0.2 AST 19 ALT 8 Alkaline Phosphatase 61 Total Protein 5.3 L Albumin 3.4 L Lipase 81 H Assessment and Plan (1) Pancreatitis: Status: Acute (2) Hypokalemia: Status: Acute Plan 69 y/o woman with a PMHx significant for GERD on Protonix and chronic pain (on oral opiate and diclofenac) who presents with: Acute pancreatitis + ? associated duodenitis and gastritis, cause unclear. ct abd: consistent with acute pancreatitis. Pyloric and duodenal wall thickening and enhancement likely reactive. Duodenitis not excluded. Slight intrahepatic biliary ductal dilatation. Common bile duct is not dilated. Mild small bowel ileus. elevated lipase levels mild leucocytosis reactive to above. abdominal ultrasound :No evidence of cholelithiasis. added ig subclasses lipase seem improving IV fluids. Pain control. Protonix 40 mg IV b.i.d.. Gastroenterology consult-continue above management -depensing upon clinical course may need fruther testing. Hypokalemia, likely secondary to vomiting and poor p.o. intake. Replete as needed. Continue to monitor. Chronic pains/osteoarthritis. s/p spinal stimulator. On chronic opiate use including oxycodone and tramadol. Possible alcohol abuse. Drinks 1-2 beers nightly. CIWA for now. Hyperlipidemia. Continue statin when able. Mood disorder. Continue home meds: Sertraline and Xanax. Code status: Full DVT prophylaxis: Lovenox ongoing need for stay: acute pancreatitis and possible duodenitis treatment with IV pain meds, hydration and monitering for symptoms Quality Stroke Does the patient have a stroke diagnosis?: No VTE Prior VTE?: No VTE Risk Level:: Medical - moderate - high VTE Device Contraindication: Treatment Not Indicated VTE Drug Contraindication: N/A - Med Ordered
[2025-04-12] MEDS: oxyCODONE HCl Immed Release 5 MG TABLET PO (15:59)
--- NOTE | 2025-04-12 17:56 | P.PNGI_ITS ---
Subjective Subjective Date of Service: 04/12/25 Interval History: Patient reports that she is feeling much better, although still having some discomfort. Tolerated liquids. Passing flatus. Denies N/V Critical Care Time (minutes): 0 Physical Exam 2 Vital Signs: Vital Signs: Last Vital Signs Temp 97.6 F 04/12/25 16:00 Pulse 88 04/12/25 16:00 Resp 19 04/12/25 16:00 BP 160/85 H 04/12/25 16:00 Pulse Ox 97 04/12/25 16:00 O2 Del Method Room Air 04/12/25 16:00 BMI result Body Mass Index 25.0 Const: General: cooperative, healthy appearing, comfortable, no acute distress, well developed, alert, awake and Physically active Eyes: Sclerae: sclerae normal GI: Other: Abd-Soft, somewhat decreased BS, mild upper abdominal tenderness, no mass/rebound/guarding Objective Data Labs 04/12/25 05:08 04/12/25 05:08 Labs: Laboratory Results - last 24 hr 04/12/25 05:08 WBC 16.4 H RBC 4.09 L Hgb 11.3 L Hct 35.0 L MCV 85.6 MCH 27.6 MCHC 32.3 RDW 15.8 Plt Count 243 MPV 10.1 Immature Gran % (Auto) 0.7 H Neut % (Auto) 79.7 H Lymph % (Auto) 12.8 L [place] % (Auto) 6.1 Eos % (Auto) 0.4 Baso % (Auto) 0.3 Lymph # (Auto) 2.1 [place] # (Auto) 1.0 Eos # (Auto) 0.1 Baso # (Auto) 0.1 Abs Immat Gran (auto) 0.12 H Absolute Neuts (auto) 13.0 H Absolute Nucleated RBC 0.000 Nucleated RBC % (auto) 0.0 Sodium 140 Potassium 3.2 L Chloride 110 H Carbon Dioxide 24 Anion Gap 9 L BUN 7 L Creatinine 0.62 Estim Creat Clear Calc 77.8 Estimated GFR > 60 Fasting Glucose 77 Calcium 8.2 L Total Bilirubin 0.3 Direct Bilirubin 0.2 AST 19 ALT 8 Alkaline Phosphatase 61 Total Protein 5.3 L Albumin 3.4 L Lipase 81 H Procedures Date of Service Date of Service: 04/12/25 Progress Note: A&P Assessment and plan (1) Pancreatitis: Status: Acute Plan Imp: Her acute pancreatitis appears to be rapidly resolving. The etiology is unclear as her U/S was negative for gallstones and she denies significant EtOH other than 1 beer daily. Her TG level is OK. Rec: Continue supportive care and observation. Would advance to a low fat diet over the weekend if things continue to improve. I advised her that I will arrange for an outpatient MRI of the pancreas with a MRCP in a month or two to further evalute for any small pancreatic mass or ductal abnormality. She may need an eventual Endoscopic U/S of the pancreas at some point as well. Will check IgG subtypes while she is here to assess for any component of autoimmune pancreatitis. D/W the patient in detail. She is comfortable with this plan. Thanks Time Spent With Patient Time: Total time managing care of this patient today ____ minutes. Quality Stroke Does the patient have a stroke diagnosis?: No VTE Prior VTE?: No VTE Risk Level:: Medical - moderate - high VTE Device Contraindication: Treatment Not Indicated VTE Drug Contraindication: N/A - Med Ordered
[2025-04-13] MEDS: Lactated Ringers 1,000 ML 100 ML IVCONT ×2 (03:17→12:51)
[2025-04-13 03:31] VITALS: BP 104/57; PULSE 73; RESP 15; TEMP 37.1; O2SAT 96
[2025-04-13 06:08] LABS: Baso%MD 0.1 %; Eos%MD 1.1 %; Hematocrit 31.0 % (37.0-47.0); Hemoglobin 10.2 g/dl (12.0-16.0); IG%MD 0.5 %; Lymph%MD 15.2 %; Mean Corpuscular HGB Conc 32.9 g/dl (31.0-35.0); Mean Corpuscular Hemoglobin 28.1 pg (27.0-33.0); Mean Corpuscular Volume 85.4 fL (80.0-98.0); Mono%MD 7.5 %; NRBC Abs Auto 0.000 X10*3/uL (0.0-0.012); NRBC Pct Auto 0.0 /100WBC (0.0-0.2); Neut%MD 75.6 %; Platelet Count 206 X10*3/uL (160-400); Red Blood Count 3.63 X10*6/uL (4.20-5.50); White Blood Count 15.0 X10*3/uL (4.8-10.8)
[2025-04-13 06:26] LABS: Anion Gap 9 (12-20); Blood Urea Nitrogen 6 mg/dL (9-16); Calcium 7.9 mg/dL (8.4-10.2); Carbon Dioxide 22 mmol/L (22-29); Chloride 110 mmol/L (96-108); Creatinine Clr Calc Pharmacy 86.2; Estimated Glomerular Filt Rate > 60; Lipase 27 U/L (8-78); Potassium 3.2 mmol/L (3.3-5.1); Sodium 138 mmol/L (135-145)
[2025-04-13 07:58] VITALS: BP 135/75; PULSE 88; RESP 16; TEMP 36.6; O2SAT 96
[2025-04-13 08:13] LABS: Magnesium 2.0 mg/dL (1.6-2.6)
--- NOTE | 2025-04-13 08:24 | P.PNIM_ITS ---
Subjective Subjective Date of Service: 04/13/25 Interval History: pancreatitis Review of Systems abd pain similar -unable to tolerate diet yet no nausea or vomiting Review of Systems: Yes all other systems are reviewed and are negative Physical Exam 2 Exam: Exam: Appearance: Alert.? Oriented X3.? cvs: rrr, [id number] . res: clear to auscultation ,no rhonchii or wheezing abd: no rebound or guarding ,left upper flank area pain, bs present. ext pulses present , no cyanosis . neuro: axo3 , nonfocal. Vital Signs: Vital Signs: Last Vital Signs Temp 97.9 F 04/13/25 07:58 Pulse 88 04/13/25 07:58 Resp 16 04/13/25 07:58 BP 135/75 04/13/25 07:58 Pulse Ox 96 04/13/25 07:58 O2 Del Method Room Air 04/13/25 07:58 BMI result Body Mass Index 25.0 Objective Data Active Medications Acetaminophen (Acetaminophen 325 Mg Tablet) 650 mg PO Q6H PRN PRN Reason: Pain, Mild 1-3,fever,headache Alprazolam (Alprazolam 0.25 Mg Tablet) 0.25 mg PO BEDTIME [facility] [place] Last Admin: 04/12/25 21:15 Dose: 0.25 mg Documented By: EDDIE Amlodipine Besylate (Amlodipine Besylate 5 Mg Tablet) 5 mg PO DAILY [facility] [place]; Protocol Last Admin: 04/12/25 07:49 Dose: 5 mg Documented By: PORSHA Bupropion HCl (Bupropion Hcl Xl 300 Mg Tab.Er.24h) 300 mg PO DAILY [facility] [place] Last Admin: 04/12/25 07:49 Dose: 300 mg Documented By: PORSHA Docusate Sodium (Docusate Sodium 100 Mg Capsule) 100 mg PO BID PRN PRN Reason: Constipation Enoxaparin Sodium (Enoxaparin Sodium 40 Mg/0.4 Ml Syringe) 40 mg SUBCUT Q24H [facility] [place] Last Admin: 04/12/25 07:48 Dose: 40 mg Documented By: PORSHA Gabapentin (Gabapentin 600 Mg Tablet) 600 mg PO TID [facility] [place] Last Admin: 04/12/25 21:15 Dose: 600 mg Documented By: EDDIE Hydromorphone HCl (Hydromorphone Hcl 1 Mg/Ml Syringe) 1 mg IVPUSH Q3H PRN; Protocol PRN Reason: Pain, Severe (Pain Scale 7-10) Last Admin: 04/13/25 05:19 Dose: 1 mg Documented By: EDDIE Lactated Ringer's (Lr) 1,000 mls @ 100 mls/hr IVCONT .Q10H [facility] [place] Last Admin: 04/13/25 03:17 Dose: 100 mls/hr Documented By: EDDIE Montelukast Sodium (Montelukast Sodium 10 Mg Tablet) 10 mg PO DAILY [facility] [place] Last Admin: 04/12/25 07:48 Dose: 10 mg Documented By: PORSHA Pt Own (Estradiol 0. 075 Mg/24 Hr Patch Semiweekly) 1 patch [facility] Ondansetron HCl (Ondansetron Hcl 4 Mg/2 Ml Vial) 4 mg IVPUSH Q6H PRN PRN Reason: Nausea and Vomiting Last Admin: 04/11/25 04:40 Dose: 4 mg Documented By: CELSA Oxycodone HCl (Oxycodone Hcl Immed Release 5 Mg Tablet) 5 mg PO Q4H PRN PRN Reason: Pain, Moderate(Pain Scale 4-6) Last Admin: 04/12/25 15:59 Dose: 5 mg Documented By: PORSHA Pantoprazole Sodium (Pantoprazole Sodium 40 Mg/10 Ml Vial) 40 mg IVPUSH BID@0630,1630 [facility] [place] Last Admin: 04/13/25 05:19 Dose: 40 mg Documented By: EDDIE Sertraline HCl (Sertraline Hcl 100 Mg Tablet) 200 mg PO BEDTIME [facility] [place] Last Admin: 04/12/25 21:15 Dose: 200 mg Documented By: EDDIE Sodium Chloride (0.9 % Sodium Chloride Flush 3 Ml Syringe) [facility] Admin: 04/12/25 21:42 Dose: Not Given Documented By: EDDIE Non-Admin Reason: IV Running Temazepam (Temazepam 15 Mg Capsule) 15 mg PO BEDTIME PRN PRN Reason: Insomnia Temazepam (Temazepam 15 Mg Capsule) 15 mg PO BEDTIME [facility] [place] Last Admin: 04/12/25 21:14 Dose: 15 mg Documented By: EDDIE Tizanidine HCl (Tizanidine Hcl 4 Mg Tablet) 4 mg PO BEDTIME [facility] [place] Last Admin: 04/12/25 21:15 Dose: 4 mg Documented By: EDDIE Tizanidine HCl (Tizanidine Hcl 4 Mg Tablet) 4 mg PO BEDTIME PRN PRN Reason: MUSCLE SPASMS Topiramate (Topiramate 100 Mg Tablet) 100 mg PO DAILY [facility] [place] Last Admin: 04/12/25 07:48 Dose: 100 mg Documented By: PORSHA Tramadol HCl (Tramadol Hcl 50 Mg Tablet) 50 mg PO BID [facility] [place] Last Admin: 04/12/25 21:14 Dose: 50 mg Documented By: EDDIE Labs 04/13/25 05:55 04/13/25 12:20 Labs: Laboratory Results - last 24 hr 04/13/25 05:55 MCV 85.4 MCH 28.1 MCHC 32.9 RDW 15.9 Plt Count 206 MPV 9.6 Absolute Nucleated RBC 0.000 Nucleated RBC % (auto) 0.0 Anion Gap 9 L Estim Creat Clear Calc 86.2 Estimated GFR > 60 Fasting Glucose 90 Calcium 7.9 L Magnesium 2.0 Lipase 27 Assessment and Plan (1) Pancreatitis: Status: Acute (2) Hypokalemia: Status: Acute Plan 69 y/o woman with a PMHx significant for GERD on Protonix and chronic pain (on oral opiate and diclofenac) who presents with: Acute pancreatitis + ? associated duodenitis and gastritis, cause unclear. ct abd: consistent with acute pancreatitis. Pyloric and duodenal wall thickening and enhancement likely reactive. Duodenitis not excluded. Slight intrahepatic biliary ductal dilatation. Common bile duct is not dilated. Mild small bowel ileus. lipase levels improved mild leucocytosis reactive to above. abdominal ultrasound :No evidence of cholelithiasis. added ig subclasses lipase seem improving IV fluids. Pain control. Protonix 40 mg IV b.i.d. Gastroenterology consult-continue above management -depensing upon clinical course may need fruther testing. Hypokalemia, likely secondary to vomiting and poor p.o. intake. Repleted and resolved Chronic pains/osteoarthritis. s/p spinal stimulator. On chronic opiate use including oxycodone and tramadol. Possible alcohol abuse. Drinks 1-2 beers nightly. CIWA for now. Hyperlipidemia. Continue statin when able. Mood disorder. Continue home meds: Sertraline and Xanax. Code status: Full DVT prophylaxis: Lovenox ongoing need for stay: acute pancreatitis and possible duodenitis treatment with IV pain meds, hydration and monitering for symptoms Quality Stroke Does the patient have a stroke diagnosis?: No VTE Prior VTE?: No VTE Risk Level:: Medical - moderate - high VTE Device Contraindication: Treatment Not Indicated VTE Drug Contraindication: N/A - Med Ordered
[2025-04-13] MEDS: Potassium Chloride Packet 20 MEQ PACKET 40 MEQ PO (08:33)
[2025-04-13] MEDS: buPROPion HCl XL 300 MG TAB.ER.24H PO (08:35)
[2025-04-13] MEDS: oxyCODONE HCl Immed Release 5 MG TABLET PO (08:48)
[2025-04-13 09:36] LABS: Band Neutrophils Percent 0 % (3-5); Burr Cells 1+ (0-2) /OIF; Lymphocytes Absolute Manual 3.2 X10*3/uL (1.2-4.9); Lymphocytes Percent Manual 21 % (20-40); Monocytes Absolute Manual 1.1 X10*3/uL (0.1-1.2); Monocytes Percent Manual 7 % (2-11); Neutrophils Absolute Manual 10.8 X10*3/uL (2.0-8.3); Neutrophils Percent Manual 72 % (45-73); RBC Morphology NOTED; Schistocytes 1+ (0-2) /OIF
[2025-04-13 09:37] LABS: Smudge Cells PRESENT; Toxic Vacuolation PRESENT
[2025-04-13 11:35] VITALS: BP 123/67; PULSE 95; RESP 16; TEMP 36.7; O2SAT 96
--- NOTE | 2025-04-13 12:08 | MHC.CM.PN ---
Addendum entered by Cathy Solis 04/14/25 13:42: PT WILL DC HOME TODAY SHE IS ATTEMPTING TO ARRANGE TRANSPORT BUT IS AWARE CM CAN ASSIST Addendum entered by Cathy Solis 04/13/25 14:25: DC CANCELED DUE TO PT C/O PAIN AND REQUIRING IV PAIN MEDS Original Note: PT CLEARED TO DC HOME TODAY, SELF CARE VIA PRIVATE TRANSPORT
[2025-04-13] MEDS: oxyCODONE HCl Immed Release 5 MG TABLET 10 MG PO ×3 (12:14→22:41)
[2025-04-13 12:34] LABS: Potassium 3.3 mmol/L (3.3-5.1)
[2025-04-13 15:41] VITALS: BP 128/71; PULSE 90; RESP 16; TEMP 36.7; O2SAT 97
[2025-04-13] MEDS: 0.9 % Sodium Chloride Flush 3 ML SYRINGE IVFLUSH ×2 (15:43→21:12)
[2025-04-13 19:02] VITALS: BP 125/64; PULSE 96; RESP 16; TEMP 37.6; O2SAT 97
[2025-04-13 23:15] VITALS: BP 153/82; PULSE 91; RESP 16; TEMP 37.2; O2SAT 96
[2025-04-14 03:45] VITALS: BP 115/59; PULSE 84; RESP 15; TEMP 36.7; O2SAT 94
[2025-04-14] MEDS: oxyCODONE HCl Immed Release 5 MG TABLET 10 MG PO ×2 (04:22→09:16)
[2025-04-14 07:19] VITALS: BP 136/78; PULSE 84; RESP 16; TEMP 36.4; O2SAT 96
[2025-04-14] MEDS: buPROPion HCl XL 300 MG TAB.ER.24H PO (08:07)
[2025-04-14] MEDS: 0.9 % Sodium Chloride Flush 3 ML SYRINGE IVFLUSH (08:07)
[2025-04-14 08:40] LABS: Alanine Aminotransferase 15 U/L (0-31); Albumin Level 3.1 g/dL (3.5-5.0); Alkaline Phosphatase 71 U/L (39-117); Aspartate Amino Transferase 23 U/L (5-31); Blood Urea Nitrogen 6 mg/dL (9-16); Calcium 8.3 mg/dL (8.4-10.2); Creatinine Clr Calc Pharmacy 81.8; Estimated Glomerular Filt Rate > 60; Lipase 24 U/L (8-78); Total Protein 5.2 g/dL (6.5-8.0)
[2025-04-14 08:51] LABS: Anion Gap 10 (12-20); Carbon Dioxide 22 mmol/L (22-29); Chloride 111 mmol/L (96-108); Potassium 4.0 mmol/L (3.3-5.1); Sodium 139 mmol/L (135-145)
[2025-04-14 11:11] VITALS: BP 146/67; PULSE 78; RESP 16; TEMP 36.5; O2SAT 97
--- NOTE | 2025-04-14 12:34 | PM.DS ---
DS: Providers Provider Date of admission: 04/10/25 23:11 Date of discharge: 04/14/25 Primary care physician: Alexis Bernabe DO Consults: 04/10/25 23:48 Consult to Gastroenterology Routine Consulting Provider: Shubham Marx Reason for consultation: Pancreatitis ? Duodenitis Has provider been notified: No Attending physician on discharge: Mayte Reeves Discharging clinician: Mayte Reeves DS: Diagnosis Discharge Diagnosis (1) Pancreatitis: Status: Acute (2) Hypokalemia: Status: Acute DS: Summary Hospital Course Hospital Course: HPI: 69 years old woman with past medical history significant for GERD on Protonix, chronic pains due to osteoarthritis and back pain issues on oxycodone, tramadol and diclofenac presents to the emergency department complaining of epigastric pain that started today at 15:00. She described the pain as sharp and radiating to the left lower quadrant and back. It is associated with multiple episodes of nonbloody vomiting and 1 episode of watery nonbloody diarrhea. She took 1 Protonix without significant improvement of symptoms. She denied prior events of pancreatitis or PUD. She drinks 1-2 beers nightly. Denied current tobacco smoking or illicit drug use. She has had EGDs and colonoscopy in the past, and basically remarkable for GERD. Abdominal surgery history is remarkable for hysterectomy. In the ED she was found to have stable vital signs. Blood workup showed no leukocytosis. Hemoglobin is 13.2 and platelets 310. There are no significant electrolyte imbalances except for hypokalemia of 3.1. BUN is 14 and creatinine 0.80. LFTs are normal. Troponin is 7.5 then 8.4. Lipase 482. Urinalysis showed no evidence of UTI; there is ketonuria. Viral testing for COVID-19, influenza and RSV is negative. CXR showed no acute findings. Abdomen and pelvis CT scan with IV contrast showed finding consistent with acute pancreatitis, pyloric and duodenal wall thickening and enhancement likely reactive; duodenitis not excluded. There is slight intrahepatic bilateral ductal dilatation there is no CBD dilatation. Mild small bowel ileus. Chest CTA showed no acute finding in the chest. ECG shows sinus bradycardia with first-degree AV block. ED tx: NS 1 L bolus, morphine 4 mg IV, Zofran 4 mg IV, potassium chloride 40 mEq p.o., Compazine 10 mg IV, Dilaudid 2 mg IV total. Hospital course: patient was admitted for acute pancreatitis -elevated lipase , CT abdomen shows acute pancreatitis and possible duodenitis- patient was started on IV fluid, PPIs, pain meds and antiemetics and also abdominal ultrasound done- which does not show cholelithiasis,IgG subtypes labs added pending- with the above management patient seems to be improved significantly, currently asymptomatic, lipase is back to normal, tolerating diet, has some pain tolerable which is improving . patient was strongly advised to abstain from alcohol. mild leukocytosis likely reactive to pancreatitis, denies any new symptoms, asymptomatic. Hypokalemia repleted and resolved , monitor electrolytes outpatient with PCP. patient is to follow-up out patiently with the PCP and GI. plan: prn oxycdone /tylenol as needed IgG subtypes labs added pending and further workup outpatient with GI. Monitor renal function electrolytes outpatient Follow-up with PCP Above management discussed patient detail length she understand and in agreement plan, time spent 50min. Time Attestation Total time managing care of this patient today: 50 mintues. Discharge Coordination Time (in mins): 50 minute Quality: Safe Use of Opioids Does Pt have an Active Cancer Diagnosis on the Problem List?: No Quality: Stroke Does the patient have a stroke diagnosis?: No Physical Exam Exam: Exam: Appearance: Alert.? Oriented X3.? cvs: rrr, [id number] , no murmur res: clear to auscultation ,no rhonchii or wheezing abd: no rebound or guarding ,nt, bs present. ext pulses present , no cyanosis . neuro: axo3 , nonfocal. Vital Signs: Vital Signs: Last Vital Signs Temp 97.7 F 04/14/25 11:11 Pulse 78 04/14/25 11:11 Resp 16 04/14/25 11:11 BP 146/67 H 04/14/25 11:11 Pulse Ox 97 04/14/25 11:11 O2 Del Method Room Air 04/14/25 11:11 BMI result Body Mass Index 25.0 DS: Data Data Completed and Pending Labs on day of discharge: Laboratory Results - last 24 hr 04/13/25 04/14/25 12:20 08:04 Sodium 139 Potassium 3.3 4.0 D Chloride 111 H Carbon Dioxide 22 Anion Gap 10 L BUN 6 L Creatinine 0.59 Estim Creat Clear Calc 81.8 Estimated GFR > 60 Random Glucose 103 Calcium 8.3 L Total Bilirubin 0.3 AST 23 ALT 15 Alkaline Phosphatase 71 Total Protein 5.2 L Albumin 3.1 L Lipase [address] scan - abdomen: Radiologist's impression: ITS Impressions Abdomen Ultrasound 04/11/25 16:03 IMPRESSION: No evidence of cholelithiasis. Ct abd: 1. Findings consistent with acute pancreatitis. 2. Pyloric and duodenal wall thickening and enhancement likely reactive. Duodenitis not excluded. 3. Slight intrahepatic biliary ductal dilatation. Common bile duct is not dilated. 4. Mild small bowel ileus. 5. Additional nonacute findings as described. Discharge Plan Discharge Anticipated Discharge Date/Time: 04/13/25 11:54 Patient Disposition: Home, Self-Care Discharge Diagnosis: acute pancreatitis, hypokalemia Referrals: Alexis Bernabe DO [Primary Care Provider, Internal Medicine] - 1 Week Shubham Marx MD [Physician, Gastroenterology] - 1 Week Discharge Medications: Continued estradiol 0.075 mg/24 hr patch semiweekly 1 patch transdermal [facility] tizanidine 4 mg tablet 4 - 8 mg PO BEDTIME diclofenac sodium 100 mg tablet extended release 24 hr 100 mg PO BEDTIME sertraline 100 mg tablet 200 mg PO BEDTIME alprazolam 0.25 mg tablet 0.25 mg PO BEDTIME pantoprazole 40 mg tablet,delayed release (DR/EC) 40 mg PO DAILY@0630 lisinopril 10 mg tablet 10 mg PO BID zaleplon 10 mg capsule 10 mg PO BEDTIME zaleplon 5 mg capsule 5 mg PO BEDTIME PRN (Reason: Insomnia) rosuvastatin 10 mg tablet 10 mg PO DAILY tramadol 100 mg tablet extended release 24 hr 100 mg PO DAILY gabapentin 600 mg tablet 600 mg PO TID montelukast 10 mg tablet 10 mg PO DAILY bupropion HCl 300 mg tablet extended release 24 hr 300 mg PO DAILY topiramate 100 mg tablet 100 mg PO DAILY oxycodone-acetaminophen 10-325 mg tablet 1 tab PO QID PRN (Reason: Pain) Qty: 10 0RF Discharge Orders: Discharge Order (Routine); Ordered 04/14/25 Ordered By: Mayte Reeves Diet: Advance to usual diet Activity on Discharge: As tolerated Stand Alone Forms: Patient Portal Discharge page Print Language: Peruvian Care Plan Goals: patient was admitted for acute pancreatitis -elevated lipase , CT abdomen shows acute pancreatitis and possible duodenitis- patient was started on IV fluid, PPIs, pain meds and antiemetics and also abdominal ultrasound done- which does not show cholelithiasis,IgG subtypes labs added pending- with the above management patient seems to be improved significantly, currently asymptomatic, lipase is back to normal, tolerating diet. patient was strongly advised to abstain from alcohol. mild leukocytosis likely reactive to pancreatitis, denies any new symptoms, asymptomatic. Hypokalemia repleted and resolved , monitor electrolytes outpatient with PCP. patient is to follow-up out patiently with the PCP and GI. Health Concerns: as above. Plan of Treatment: as above. Assessment: As above.
[2025-04-15 17:03] LABS: Immunoglobulin G Subclass 1 240 mg/dL (382-929); Immunoglobulin G Subclass 2 168 mg/dL (241-700); Immunoglobulin G Subclass 3 12 mg/dL (22-178); Immunoglobulin G Subclass 4 7.1 mg/dL (4-86); Immunoglobulin G Total 464 mg/dL (600-1540)
== END 2025-04-14 13:21 | disposition home or self-care (01) | DRG 440 ==
LOC: HO.ED 23:09 → HO.EDOVER 23:37 → HO.S3 04-11 07:12
PROVIDERS: Internal Medicine; Nurse Practitioner; Physician Assistant Medical; Admitting Provider Internal Medicine; Emergency Provider Emergency Medicine; PCP Family Medicine; Visit Provider Internal Medicine
DX: K85.90 Acute pancreatitis without necrosis or infection, unspecified (principal); E87.6 Hypokalemia; M54.9 Dorsalgia, unspecified; F10.10 Alcohol abuse, uncomplicated; E78.5 Hyperlipidemia, unspecified; F39 Unspecified mood [affective] disorder; K29.80 Duodenitis without bleeding; G89.29 Other chronic pain; Z96.82 Presence of neurostimulator; Z20.822 Contact with and (suspected) exposure to COVID-19; Z79.891 Long term (current) use of opiate analgesic; Z79.899 Other long term (current) drug therapy
CPT/HCPCS: 36415; 71045; 71260; 74177; 76705; 80048; 80053; 80076; 81003; 82784; 82803; 83036; 83690; 83735; 83880; 84132; 84478; 84484; 85007; 85025; 85027; 86140; 87637; 93005; 99285; J0737; J1171; J1650; J2270; J2405; J2470; J3480; J7120; Q9967

== ENCOUNTER → 2025-04-10 17:16 | Outpatient (BNV) | payer MEDICARE, SELFPAY | PROVIDERS: Visit Provider Specialist | DX: K31.1 Adult hypertrophic pyloric stenosis (principal); K31.89 Other diseases of stomach and duodenum; K56.7 Ileus, unspecified; R10.13 Epigastric pain; R07.9 Chest pain, unspecified | CPT/HCPCS: 71045; 71260; 74177 ==

== ENCOUNTER → 2025-04-10 17:16 | Outpatient (BNV) | payer MEDICARE, OTHER, SELFPAY | PROVIDERS: Admitting Provider Internal Medicine; Emergency Provider Emergency Medicine; PCP Family Medicine; Visit Provider Internal Medicine Cardiovascular Disease | DX: R00.1 Bradycardia, unspecified (principal); I44.0 Atrioventricular block, first degree | CPT/HCPCS: 93010 ==

== ENCOUNTER 2025-04-10 23:11 | Outpatient (BNV) | payer MEDICARE, OTHER, SELFPAY | END 2025-04-11 16:03 | PROVIDERS: Admitting Provider Internal Medicine; Emergency Provider Emergency Medicine; PCP Family Medicine; Visit Provider Radiology Diagnostic Radiology | DX: K85.90 Acute pancreatitis without necrosis or infection, unspecified (principal) | CPT/HCPCS: 76705 ==

== ENCOUNTER → 2025-04-10 23:11 | Outpatient (BNV) | payer MEDICARE, SELFPAY | PROVIDERS: Admitting Provider Internal Medicine; Emergency Provider Emergency Medicine; PCP Family Medicine; Visit Provider Internal Medicine | DX: K85.90 Acute pancreatitis without necrosis or infection, unspecified (principal); E87.6 Hypokalemia | CPT/HCPCS: 99222; 99232 ==